=== PATIENT | female | born 1995 | race Caucasian/White ===

== ENCOUNTER 2018-04-20 14:30 | Emergency (ER) | payer OTHER ==
[~2018-04-20] VITALS: Ht 157.5 cm; Wt 67.1 kg
[2018-04-20 14:34] VITALS: Ht 157.5 cm; Wt 67.1 kg
[2018-04-20 16:33] VITALS: BP 121/93
== END 2018-04-20 18:38 | disposition home or self-care (01) ==
LOC: ED 14:30
DX: R06.00 Dyspnea, unspecified (principal); J45.909 Unspecified asthma, uncomplicated; Z91.010 Allergy to peanuts
CPT/HCPCS: J2930; J3490